=== PATIENT | male | born 1975 | race African-American/Black ===

== ENCOUNTER 2019-08-19 18:38 | Emergency (ER) | payer OTHER ==
[2019-08-19] MEDS ORDERED: Ibuprofen TAB* 600 MG PO ONE (19:24)
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
[2019-08-19 20:49] VITALS: BP 131/73
== END 2019-08-19 20:26 | disposition home or self-care (01) ==
LOC: ED 18:38
DX: M54.2 Cervicalgia (principal); M54.6 Pain in thoracic spine; M54.5 Low back pain; V43.52XA Car driver injured in collision with other type car in traffic accident, initial encounter; Y92.410 Unspecified street and highway as the place of occurrence of the external cause
CPT/HCPCS: 72050; 72070; 72110; 99282; A9270-GY